=== PATIENT | male | born 1930 | race Caucasian/White ===

== ENCOUNTER 2019-03-09 09:18 | Inpatient (IN) | payer OTHER ==
[~2019-03-09] VITALS: Ht 182.9 cm; Wt 73.5 kg
[2019-03-09] MEDS ORDERED: ARICEPT10 MG PO (09:49)
[2019-03-09] MEDS ORDERED: CYCLOBENZAPRINE10 MG PO (09:50)
[2019-03-09] MEDS ORDERED: AMIODARONE HCL200 MG PO ×2 (09:50→09:52)
[2019-03-09] MEDS ORDERED: RELAFEN PO (09:52)
[2019-03-09] MEDS ORDERED: LANOXIN125 MCG PO (09:53)
[2019-03-09] MEDS ORDERED: FUROSEMIDE20 MG PO (09:53)
[2019-03-09] MEDS ORDERED: ALER-CAP25 MG PO (09:54)
[2019-03-09] MEDS ORDERED: ALDACTONE25 MG PO (09:55)
[2019-03-09] MEDS ORDERED: ATORVASTATIN CA40 MG PO (09:55)
[2019-03-09] MEDS ORDERED: CELEBREX200MG PO (09:56)
[2019-03-09] MEDS ORDERED: ELIQUIS2.5 MG PO (09:56)
[2019-03-09] MEDS ORDERED: TOPROL XL50 MG PO (09:56)
[2019-03-09] MEDS ORDERED: DETROL LA4 MG PO (09:58)
[2019-03-09] MEDS ORDERED: UNISOM SLEEP AI25 MG PO (09:59)
[2019-03-20] MEDS ORDERED: AMIODARONE HCL200 MG PO (16:59)
[2019-03-20] MEDS ORDERED: ARICEPT10 MG PO (16:59)
[2019-03-20] MEDS ORDERED: TOPROL XL25 M1 PO (16:59)
[2019-03-20] MEDS ORDERED: PANTOPRAZOLE SO40 MG PO (16:59)
== END 2019-03-21 08:10 | disposition home or self-care (01) | DRG 280 ==
LOC: ER 09:18 → MEDJ 12:39
PROVIDERS: ADMIT Internal Medicine Geriatric Medicine
PROC: 30233N1 Transfusion of Nonautologous Red Blood Cells into Peripheral Vein, Percutaneous Approach (ICD-10-PCS; 2019-03-09)
PROC: 4A12X4Z Monitoring of Cardiac Electrical Activity, External Approach (ICD-10-PCS; 2019-03-09)
PROC: B246ZZZ Ultrasonography of Right and Left Heart (ICD-10-PCS; 2019-03-10)
PROC: 0DJ08ZZ Inspection of Upper Intestinal Tract, Via Natural or Artificial Opening Endoscopic (ICD-10-PCS; principal; 2019-03-17)
DX: I21.4 Non-ST elevation (NSTEMI) myocardial infarction (principal); I50.33 Acute on chronic diastolic (congestive) heart failure; N17.8 Other acute kidney failure; K92.1 Melena; L03.113 Cellulitis of right upper limb; K26.3 Acute duodenal ulcer without hemorrhage or perforation; K25.3 Acute gastric ulcer without hemorrhage or perforation; A09 Infectious gastroenteritis and colitis, unspecified; I48.0 Paroxysmal atrial fibrillation; I24.8 Other forms of acute ischemic heart disease; D64.89 Other specified anemias; I11.0 Hypertensive heart disease with heart failure; I35.0 Nonrheumatic aortic (valve) stenosis; A08.8 Other specified intestinal infections; E86.0 Dehydration; F03.90 Unspecified dementia, unspecified severity, without behavioral disturbance, psychotic disturbance, mood disturbance, and anxiety; I25.10 Atherosclerotic heart disease of native coronary artery without angina pectoris; E78.00 Pure hypercholesterolemia, unspecified; E78.49 Other hyperlipidemia; Z79.01 Long term (current) use of anticoagulants; Z95.1 Presence of aortocoronary bypass graft; T80.89XA Other complications following infusion, transfusion and therapeutic injection, initial encounter

== ENCOUNTER 2019-11-06 12:24 | Emergency (ER) | payer OTHER ==
[~2019-11-06] VITALS: Ht 167.6 cm; Wt 73.5 kg
[~2019-11-06 12:24] MED LIST: ALDACTONE25 MG PO; ALER-CAP25 MG PO; AMIODARONE HCL200 MG PO; ARICEPT10 MG PO; ATORVASTATIN CA40 MG PO; CELEBREX200MG PO; CYCLOBENZAPRINE10 MG PO; DETROL LA4 MG PO; ELIQUIS2.5 MG PO; FUROSEMIDE20 MG PO; LANOXIN125 MCG PO; PANTOPRAZOLE SO40 MG PO; RELAFEN PO; TOPROL XL25 M1 PO; TOPROL XL50 MG PO; UNISOM SLEEP AI25 MG PO
[2019-11-06] MEDS ORDERED: TOPROL XL25 M1 (12:33)
[2019-11-06] MEDS ORDERED: ELIQUIS2.5 MG (12:33)
[2019-11-06] MEDS ORDERED: INDERAL XL80 MG (12:33)
== END 2019-11-06 18:42 | disposition home or self-care (01) ==
LOC: ER
DX: S00.03XA Contusion of scalp, initial encounter (principal); S20.211A Contusion of right front wall of thorax, initial encounter; S60.511A Abrasion of right hand, initial encounter; R55 Syncope and collapse; J32.0 Chronic maxillary sinusitis; W18.09XA Striking against other object with subsequent fall, initial encounter; Y93.89 Activity, other specified; Y92.018 Other place in single-family (private) house as the place of occurrence of the external cause